=== PATIENT | female | born 1950 | race Asian ===

== ENCOUNTER → 2018-01-23 | Outpatient (CLI) | payer OTHER | END | disposition home or self-care (01) | LOC: HKI 13:49 | DX: M17.0 Bilateral primary osteoarthritis of knee (principal) | CPT/HCPCS: 73564; 73564-50 ==

== ENCOUNTER → 2018-02-16 | Outpatient (CLI) | payer OTHER | END | disposition home or self-care (01) | LOC: HKI 13:44 | DX: M17.0 Bilateral primary osteoarthritis of knee (principal) | CPT/HCPCS: 20610 ==

== ENCOUNTER → 2018-03-23 | Outpatient (CLI) | payer OTHER | END | disposition home or self-care (01) | LOC: HKI 09:21 | DX: M17.0 Bilateral primary osteoarthritis of knee (principal) | CPT/HCPCS: 20610 ==